=== PATIENT | female | born 2005 | race Hispanic/Latino ===

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

== ENCOUNTER 2023-04-02 22:09 | Emergency (ER) | payer OTHER ==
[2023-04-03 00:06] LABS: Specific Gravity 1.015 (1.005-1.030); Urine Bacteria None Seen /HPF (<20); Urine Bilirubin NEGATIVE (Negative); Urine Blood Negative (Negative); Urine Clarity Turbid (Clear); Urine Color Light-Yellow (Yellow); Urine Glucose NEGATIVE (Negative); Urine Mucus Slight /HPF (None Seen); Urine Protein NEGATIVE (Negative); Urine RBC <5 /HPF (None Seen); Urine Urobilinogen Normal (Normal); Urine pH 6.5 (5.0-7.0)
--- NOTE | 2023-04-03 00:20 | EDPHYS ---
Physician Documentation [facility] Name: Oriana Landon Age: 17 yrs Sex: Female : 2005 Arrival Date: 04/02/2023 Time: 22:09 Bed 5 Private MD: ED Physician Scottie Saeed HPI: 04/02 23:04 This 17 yrs old Female presents to ER via Unassigned with complaints of 17 snw WEEKS - WEAKNESS, possible panic attack. 23:04 pt states she started to panic and hyperventilated and then felt weak. Pt states she is snw feeling better at this time but wanted to be checked out. . Onset: The symptoms/episode began/occurred acutely. Severity of symptoms: At their worst the symptoms were moderate in the emergency department the symptoms have resolved. The patient has not experienced similar symptoms in the past. 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 . no vaginal discharge/spotting/bleeding, + movement. 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 - Social history:: Smoking status: Patient denies any tobacco usage or history of. Patient/guardian denies using alcohol, street drugs. ROS: 23:02 Eyes: Negative for injury, pain, redness, and discharge, ENT: Negative for injury, snw pain, and discharge, Neck: Negative for injury, pain, and swelling, Cardiovascular: Negative for chest pain, palpitations, and edema. 23:02 Abdomen/GI: Negative for abdominal pain, nausea, vomiting, diarrhea, and constipation, Back: Negative for injury and pain, : Negative for injury, bleeding, discharge, and swelling, MS/Extremity: Negative for injury and deformity, Skin: Negative for injury, rash, and discoloration, Neuro: Negative for headache, weakness, numbness, tingling, and seizure, Psych: Negative for depression, anxiety, suicide ideation, homicidal ideation, and hallucinations. 23:02 Constitutional: Positive for malaise. 23:02 Respiratory: Positive for hyperventilation. Exam: 23:02 Constitutional: This is a well developed, well nourished patient who is awake, alert, snw and in no acute distress. Head/Face: Normocephalic, atraumatic. Eyes: Pupils equal round and reactive to light, extra-ocular motions intact. Lids and lashes normal. Conjunctiva and sclera are non-icteric and not injected. Cornea within normal limits. Periorbital areas with no swelling, redness, or edema. ENT: Nares patent. No nasal discharge, no septal abnormalities noted. Tympanic membranes are normal and external auditory canals are clear. Oropharynx with no redness, swelling, or masses, exudates, or evidence of obstruction, uvula midline. Mucous membranes moist. Neck: Trachea midline, no thyromegaly or masses palpated, and no cervical lymphadenopathy. Supple, full range of motion without nuchal rigidity, or vertebral point tenderness. No Meningismus. Chest/axilla: Normal chest wall appearance and motion. Nontender with no deformity. No lesions are appreciated. Cardiovascular: Regular rate and rhythm with a normal S1 and S2. No gallops, murmurs, or rubs. Normal PMI, no JVD. No pulse deficits. Respiratory: Lungs have equal breath sounds bilaterally, clear to auscultation and percussion. No rales, rhonchi or wheezes noted. No increased work of breathing, no retractions or nasal flaring. Back: No spinal tenderness. No costovertebral tenderness. Full range of motion. Skin: Warm, dry with normal turgor. Normal color with no rashes, no lesions, and no evidence of cellulitis. MS/ Extremity: Pulses equal, no cyanosis. Neurovascular intact. Full, normal range of motion. Neuro: Awake and alert, GCS 15, oriented to person, place, time, and situation. Cranial nerves II-XII grossly intact. Motor strength 5/5 in all extremities. Sensory grossly intact. Cerebellar exam normal. Normal gait. Psych: Awake, alert, with orientation to person, place and time. Behavior, mood, and affect are within normal limits. 23:02 Abdomen/GI: Inspection: gravid appearance, is noted, Bowel sounds: normal. Vital Signs: 23:03 BP 108 / 59; Pulse 84; Resp 20; Temp 99.1; Pulse Ox 100% ; cm10 08 00:30 BP 111 / 62; Pulse 81; Resp 18 S; Pulse Ox 100% on R/A; lg3 MDM: 04/02 23:01 Patient medically screened. snw 23:56 Differential Diagnosis uti, anxiety, hyperventilation syndrome. Data reviewed: vital snw signs, nurses notes. Counseling: I had a detailed discussion with the patient and/or guardian regarding: the historical points, exam findings, and any diagnostic results supporting the discharge/admit diagnosis, the need for outpatient follow up, for definitive care, to return to the emergency department if symptoms worsen or persist or if there are any questions or concerns that arise at home. Special discussion: Based on the history and exam findings, there is no indication for further emergent testing or inpatient evaluation. I discussed with the patient/guardian the need to see the OB Gyne specialist for further evaluation of the symptoms. 04/03 00:18 I considered the following discharge prescriptions or medication management in the [facility] emergency department Medications were administered in the Emergency Department. See MAR. 04/02 22:42 Order name: Urine W/Microscopic (UAM); Complete Time: 00:11 snw 04/02 22:42 Order name: FHT's; Complete Time: 23:48 snw Administered Medications: 00:27 Drug: Cephalexin PO 500 mg Route: PO; lg3 00:31 Follow up: Response: No adverse reaction lg3 Disposition Summary: 04/03/23 00:19 Discharge Ordered Location: Home snw Condition: Stable snw Diagnosis - Acute stress reaction snw - UTI/ Urinary tract infection, site not specified snw - state, incidental snw Followup: snw - With: Emergency Department - When: As needed - Reason: Worsening of condition Followup: snw - With: Private Physician - When: Saturday as scheduled - Reason: Discharge Instructions: - Discharge Summary Sheet snw - Urinary Tract Infection, Adult snw - Rehydration, Adult snw - Managing Stress During snw Forms: - Work release form snw - Medication Reconciliation Form snw - Thank You Letter snw - Antibiotic Education snw - Prescription Opioid Use snw - Patient Portal Instructions snw Prescriptions: - Cephalexin 500 mg Oral Capsule - take 1 capsule by ORAL route every 8 hours for 10 days; 30 capsule; Refills: 0, snw Product Selection Permitted Signatures: Dispatcher [employer] EDHannah Carmichael FNP-C FNP-Csnw Kati Campa, RN RN lg3 Corrections: (The following items were deleted from the chart) 04/02 23:04 23:03 Allergies: unknown antibiotic; snw snw
--- NOTE | 2023-04-03 00:20 | ER ---
Nurse's Notes [facility] Name: Oriana Lanodn Age: 17 yrs Sex: Female : 2005 Arrival Date: 04/02/2023 Time: 22:09 Bed 5 Private MD: Diagnosis: Acute stress reaction;UTI/ Urinary tract infection, site not specified; state, incidental Presentation: 04/02 23:03 Chief complaint: Chief complaint: Patient states: started to have a panic attack and cm10 started to feel weak and wanted to get checked. Coronavirus screen: Client denies travel out of the [place] in the last 14 days. Ebola Screen: Patient denies travel to an Ebola-affected area in the 21 days before illness onset. No symptoms or risks identified at this time. Initial Sepsis Screen: Does the patient meet any 2 criteria? No. Patient's initial sepsis screen is negative. Does the patient have a suspected source of infection? No. Patient's initial sepsis screen is negative. Risk Assessment: Do you want to hurt yourself or someone else? Patient reports no desire to harm self or others. Onset of symptoms was April 02, 2023. 23:03 Method Of Arrival: Ambulatory cm10 23:03 Acuity: FAVIO 3 cm10 Triage Assessment: 23:04 General: Appears in no apparent distress. distressed, Behavior is calm, cooperative. 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 - Social history:: Smoking status: Patient denies any tobacco usage or history of. Patient/guardian denies using alcohol, street drugs. Screenin:10 [facility] ED Fall Risk Assessment (Adult) History of falling in the last 3 months, lg3 including since admission No falls in past 3 months (0 pts) Confusion or Disorientation No (0 pts) Intoxicated or Sedated No (0 pts) Impaired Gait No (0 pts) Mobility Assist Device Used No (0 pt) Altered Elimination No (0 pt) Score/Fall Risk Level 0 - 2 = Low Risk Oriented to surroundings, Maintained a safe environment, Educated pt \T\ family on fall prevention, incl call for assistance when getting out of bed. Abuse screen: Denies threats or abuse. Denies injuries from another. Nutritional screening: No deficits noted. Tuberculosis screening: No symptoms or risk factors identified. Assessment: 23:10 General: Appears in no apparent distress. comfortable, Behavior is cooperative, lg3 anxious. Pain: Complains of pain in pelvis. Neuro: No deficits noted. Aguilar Agitation-Sedation Scale (RASS): 0 - Alert and Calm Level of Consciousness is awake, alert, obeys commands, Oriented to person, place, time, situation. Cardiovascular: No deficits noted. Reports lightheadedness, Denies chest pain, shortness of breath, Capillary refill < 3 seconds Clubbing of nail beds is absent JVD is absent Patient's skin is warm and dry. Respiratory: No deficits noted. Airway is patent Respiratory effort is even, unlabored, Respiratory pattern is regular, symmetrical. GI: No deficits noted. Abdomen is round. : No signs and/or symptoms were reported regarding the genitourinary system. EENT: No deficits noted. No signs and/or symptoms were reported regarding the EENT system. Derm: No deficits noted. No signs and/or symptoms reported regarding the dermatologic system. Skin is intact, is healthy with good turgor, Skin is dry, Skin is normal, Skin temperature is warm. Musculoskeletal: No deficits noted. Reports generalized weakness. 04/03 00:31 Reassessment: Patient appears in no apparent distress at this time. No changes from lg3 previously documented assessment. Patient and/or family updated on plan of care and expected duration. Pain level reassessed. Patient is alert, oriented x 3, equal unlabored respirations, skin warm/dry/pink. Patient states feeling better. Patient states symptoms have improved. Vital Signs: 04/02 23:03 BP 108 / 59; Pulse 84; Resp 20; Temp 99.1; Pulse Ox 100% ; cm10 04/03 00:30 BP 111 / 62; Pulse 81; Resp 18 S; Pulse Ox 100% on R/A; lg3 Vitals: 04/02 23:48 Heart Tones 138. as6 ED Course: 22:12 Patient arrived in ED. ag3 22:14 Hannah Liang FNP-C [facility] snw 22:14 Scottie Saeed MD is Attending Physician. snw 23:04 Triage completed. cm10 23:04 Arm band placed on Patient placed in waiting room. cm10 23:10 Patient has correct armband on for positive identification. Placed in gown. Bed in low lg3 position. Call light in reach. Side rails up X 1. Client placed on continuous cardiac and pulse oximetry monitoring. NIBP monitoring applied. Door closed. Noise minimized. Warm blanket given. Family accompanied patient. 23:10 Urine W/Microscopic (UAM) Sent. cm10 23:10 Patient maintains SpO2 saturation greater than 95% on room air. lg3 23:48 Dimitrios Ibarra, RN is Primary Nurse. as6 04/03 00:31 No provider procedures requiring assistance completed. Patient did not have IV access lg3 during this emergency room visit. Administered Medications: 00:27 Drug: Cephalexin PO 500 mg Route: PO; lg3 00:31 Follow up: Response: No adverse reaction lg3 Medication: 00:30 VIS not applicable for this client. lg3 Outcome: 00:19 Discharge ordered by MD. snw 00:31 Discharged to home ambulatory, with significant other. lg3 00:31 Condition: stable 00:31 Discharge instructions given to patient, Instructed on discharge instructions, follow up and referral plans. medication usage, Demonstrated understanding of instructions, follow-up care, medications, Prescriptions given X 1. 00:35 Patient left the ED. lg3 Signatures: Hannah Liang, ARMHOLE BASTER HAND-C ARMHOLE BASTER HAND-CsnEsperanza Sweeney 3 Kati Campa RN HIRA lg3 Dimitrios Ibarra, RN HIRA as6 Fauzia Love, RN RN cm10 Corrections: (The following items were deleted from the chart) 04/02 23:04 23:03 Allergies: unknown antibiotic; snw snw 23:06 23:03 Chief complaint: cm10 cm10
[2023-04-03] MEDS ORDERED: CEPHALEXIN 250 MG CAP ONE (00:32)
[2023-04-03 00:53] VITALS: TEMP 99.1; O2SAT 100
[2023-04-03 00:55] VITALS: BP 111/62
== END 2023-04-03 00:35 | disposition home or self-care (01) ==
LOC: ER 22:09
DX: F43.0 Acute stress reaction (principal); N39.0 Urinary tract infection, site not specified; Z33.1 Pregnant state, incidental; Z88.0 Allergy status to penicillin
CPT/HCPCS: 81001